=== PATIENT | female | born 1960 | race Two or more races ===

== ENCOUNTER → 2024-01-31 | Outpatient (CLI) | payer MEDICAID, SELFPAY ==
--- NOTE | 2024-01-31 13:30 | XR_ITS ---
Examination: Breast ultrasound, unilateral, left complete Date and time of exam: January 31, 2024 1329 hours INDICATIONS: Personal history left breast cancer lumpectomy chemotherapy and radiation therapy, mammogram December 17, 2023 focal asymmetries left breast MLO view nipple level Technique: Real-time delgado scale ultrasonographic imaging performed left breast including all 4 quadrants as well as nipple retroareolar and axillary region. Findings: 9:00 oval mass lobular margins 7 x 3 x 6 mm Retroareolar cyst 14 x 5 x 10 mm IMPRESSION: BI-RADS Category 3: Probably benign findings One additional 6 month left breast sonogram follow-up is needed to document stability of left breast 9:00 nodule described
== END | disposition home or self-care (01) ==
LOC: CDIM 13:07
PROVIDERS: PCP Nurse Practitioner Family; Referring Provider Nurse Practitioner Family; Visit Provider Nurse Practitioner Family
DX: R92.342 Mammographic extreme density, left breast (principal); N63.25 Unspecified lump in the left breast, overlapping quadrants
CPT/HCPCS: 76641

== ENCOUNTER 2024-02-10 13:29 | Outpatient (RCR) | payer MEDICAID, SELFPAY | END 2024-03-07 23:59 | disposition home or self-care (01) | LOC: SCTC 13:29 | PROVIDERS: PCP Nurse Practitioner Family; Referring Provider Internal Medicine Hematology & Oncology; Visit Provider Nurse Practitioner Family | DX: C50.112 Malignant neoplasm of central portion of left female breast (principal); Z17.1 Estrogen receptor negative status [ER-]; Z17.22 Progesterone receptor negative status; Z17.32 Human epidermal growth factor receptor 2 negative status; Z90.12 Acquired absence of left breast and nipple; M81.0 Age-related osteoporosis without current pathological fracture; K21.9 Gastro-esophageal reflux disease without esophagitis; I10 Essential (primary) hypertension; E78.00 Pure hypercholesterolemia, unspecified | CPT/HCPCS: 96372; 99212; J0897; G0463 ==

== ENCOUNTER → 2024-07-25 | Outpatient (CLI) | payer MEDICAID, SELFPAY ==
--- NOTE | 2024-07-25 15:00 | XR_ITS ---
Examination: Breast ultrasound, unilateral, left complete Date and time of exam: July 25, 2024 1537 hours, personal history left breast cancer lumpectomy surgery May 29, 2021, left breast sonogram January 31, 2024 9:00 nodule 7 x 6 mm Technique: Real-time delgado scale ultrasonographic imaging performed left breast including all 4 quadrants as well as nipple retroareolar and axillary region. Findings: 9:00 nodule circumscribed 7 x 8 mm Retroareolar cyst 10 x 8 mm Retroareolar cyst 11 x 8 mm IMPRESSION: BI-RADS Category 2: Benign findings
== END | disposition home or self-care (01) ==
PROVIDERS: PCP Nurse Practitioner Family; Referring Provider Nurse Practitioner Family; Visit Provider Nurse Practitioner Family
DX: R92.342 Mammographic extreme density, left breast (principal); N60.02 Solitary cyst of left breast; N63.25 Unspecified lump in the left breast, overlapping quadrants; C50.112 Malignant neoplasm of central portion of left female breast
CPT/HCPCS: 76641

== ENCOUNTER 2024-08-15 11:33 | Outpatient (RCR) | payer MEDICAID, SELFPAY | END 2024-09-04 23:59 | disposition home or self-care (01) | LOC: SCTC 11:33 | PROVIDERS: PCP Nurse Practitioner Family; Referring Provider Nurse Practitioner Family; Visit Provider Nurse Practitioner Family | DX: C50.112 Malignant neoplasm of central portion of left female breast (principal); Z17.1 Estrogen receptor negative status [ER-]; Z17.22 Progesterone receptor negative status; Z17.32 Human epidermal growth factor receptor 2 negative status; M81.0 Age-related osteoporosis without current pathological fracture; L98.8 Other specified disorders of the skin and subcutaneous tissue | CPT/HCPCS: 99212; G0463 ==

== ENCOUNTER → 2024-09-01 | Outpatient (CLI) | payer MEDICAID, SELFPAY ==
--- NOTE | 2024-09-01 08:15 | XR_ITS ---
Examination: Breast ultrasound, unilateral, right complete Date and time of exam: September 01, 2024 0837 hours INDICATIONS: Personal history left breast cancer lumpectomy 2021, family history breast cancer, patient states right breast pain one week Technique: Real-time delgado scale ultrasonographic imaging performed right breast including all 4 quadrants as well as nipple retroareolar and axillary region. Findings: No cystic or solid mass IMPRESSION: BI-RADS Category 1: Negative study Consider diagnostic mammography follow-up
== END | disposition home or self-care (01) ==
PROVIDERS: PCP Nurse Practitioner Family; Referring Provider Nurse Practitioner Family; Visit Provider Nurse Practitioner Family
DX: N64.4 Mastodynia (principal); Z85.3 Personal history of malignant neoplasm of breast
CPT/HCPCS: 76641

== ENCOUNTER → 2025-01-02 | Outpatient (CLI) | payer MEDICAID, SELFPAY ==
--- NOTE | 2025-01-02 09:00 | XR_ITS ---
Examination: Screening digital mammography, bilateral Computer aided detection 3-D breast Tomosynthesis, bilateral Date and time of exam: January 02, 2025, 0841 hours, compared to mammograms dating to October 21, 2022 Indication: Screening Technique: Nonmagnified MLO, CC views of the breasts to been obtained, reconstructed from 3-D Tomosynthesis images. R2 computer aided detection program utilized for evaluation of suspicious masses and/or abnormal calcifications. 3-D Tomosynthesis images obtained. Findings: The breasts are heterogeneously dense, which may obscure small masses Extensive scar formation left breast stable with nipple retraction No interval suspicious masses Impression: BI-RADS category II: Benign Findings. Recommend 1 year follow-up mammogram. Given the extensive architectural distortion left breast, consider baseline screening bilateral breast sonography follow-up
== END | disposition home or self-care (01) ==
PROVIDERS: Referring Provider Nurse Practitioner Family; Visit Provider Nurse Practitioner Family
DX: Z12.31 Encounter for screening mammogram for malignant neoplasm of breast (principal); R92.323 Mammographic fibroglandular density, bilateral breasts; C50.112 Malignant neoplasm of central portion of left female breast
CPT/HCPCS: 77063; 77067

== ENCOUNTER → 2025-01-17 | Outpatient (CLI) | payer MEDICAID, SELFPAY ==
--- NOTE | 2025-01-17 13:30 | XR_ITS ---
Examination: Breast ultrasound, unilateral, left Date and time of exam: January, 1319 hours INDICATIONS: Mammogram January 02, 2025 extensive architectural distortion left breast, a personal history left breast cancer lumpectomy nipple removed May 29, 2021 Technique: Real-time delgado scale ultrasonographic imaging performed left breast including all 4 quadrants as well as nipple retroareolar and axillary region. Findings: 9:00 nodule lobular margins 11 x 5 mm Retroareolar cyst with internal echoes 9 x 7 mm Retroareolar cyst with internal echoes 13 x 10 mm IMPRESSION: BI-RADS Category 3: Probably benign findings Recommend 3 to 6-month left breast sonogram follow-up to document stability of 9:00 nodule described
== END | disposition home or self-care (01) ==
LOC: CDIM 13:03
PROVIDERS: Referring Provider Nurse Practitioner Family; Visit Provider Nurse Practitioner Family
DX: N63.25 Unspecified lump in the left breast, overlapping quadrants (principal)
CPT/HCPCS: 76641

== ENCOUNTER 2025-03-06 07:49 | Outpatient (RCR) | payer MEDICAID, SELFPAY | END 2025-03-07 23:59 | disposition home or self-care (01) | LOC: SCTC 07:49 | PROVIDERS: PCP Nurse Practitioner Family; Referring Provider Nurse Practitioner Family; Visit Provider Nurse Practitioner Family | DX: Z08 Encounter for follow-up examination after completed treatment for malignant neoplasm (principal); Z85.3 Personal history of malignant neoplasm of breast; Z90.12 Acquired absence of left breast and nipple; Z92.21 Personal history of antineoplastic chemotherapy; M81.0 Age-related osteoporosis without current pathological fracture; N63.25 Unspecified lump in the left breast, overlapping quadrants | CPT/HCPCS: 36415; 96372; 99212; J0897; G0463 ==